=== PATIENT | female | born 1995 | race Caucasian/White ===

== ENCOUNTER 2016-11-12 07:00 | Emergency (ER) | payer BC ==
[2016-11-12 07:19] VITALS: BP 122/73
[2016-11-12 09:28] LABS: APPEARANCE,URINE CLEAR; BILIRUBIN,URINE NEGATIVE (NEGATIVE); GLUCOSE, URINE NEGATIVE (NEGATIVE); KETONES,URINE NEGATIVE (NEGATIVE); LEUKOCYTE ESTERASE,URINE NEGATIVE (NEGATIVE); NITRITE,URINE NEGATIVE (NEGATIVE); PROTEIN,URINE NEGATIVE (NEGATIVE); UROBILINOGEN,URINE NEGATIVE mg/dL (<2.0)
--- NOTE | 2016-11-12 10:53 | EKG REPORT ---
SEVERITY:- NORMAL ECG - SINUS RHYTHM : Confirmed by: Albert Peguero 12-Nov-2016 10:52:22
--- NOTE | 2016-11-12 10:53 | ER Document Report ---
ED General - General Chief Complaint: Anxiety Stated Complaint: CHEST PAIN TRAVEL OUTSIDE OF THE [place] IN LAST 30 DAYS: No - HPI Patient complains to provider of: chest pain numbness and tingling right arm Notes: Patient coming in for chest pain and tingling of the right arm patient states multiple episodes throughout the last few months states the episode tonight was to wear she's had. Patient denies any fevers chills nausea vomiting diarrhea recent travel. Patient's resting currently upon my evaluation. Patient currently is asymptomatic. - Related Data Allergies/Adverse Reactions: No Known Allergies Allergy (Unverified 11/12/16 07:19) Past Medical History - Social History Smoking Status: Current Some Day Smoker Chew tobacco use (# tins/day): No Frequency of alcohol use: Occasional Drug Abuse: None Family History: Reviewed & Not Pertinent Patient has suicidal ideation: No Patient has homicidal ideation: No Renal/ Medical History: Denies: Hx Peritoneal Dialysis Surgical Hx: Negative Review of Systems - Review of Systems Constitutional: No symptoms reported EENT: No symptoms reported Cardiovascular: Chest pain Respiratory: No symptoms reported Gastrointestinal: No symptoms reported Genitourinary: No symptoms reported Female Genitourinary: No symptoms reported Musculoskeletal: No symptoms reported Skin: No symptoms reported Hematologic/Lymphatic: No symptoms reported Neurological/Psychological: Tingling -: Yes All other systems reviewed and negative Physical Exam - Vital signs Vitals: Temp Pulse Resp BP Pulse Ox 98.0 F 99 18 122/73 97 11/12/16 07:15 11/12/16 07:15 11/12/16 07:15 11/12/16 07:15 11/12/16 07:15 Interpretation: Normal - General General appearance: Appears well, Alert - HEENT Head: Normocephalic, Atraumatic Eyes: Normal Pupils: PERRL - Respiratory Respiratory status: No respiratory distress Chest status: Nontender Breath sounds: Normal Chest palpation: Normal - Cardiovascular Rhythm: Regular Heart sounds: Normal auscultation Murmur: No - Abdominal Inspection: Normal Distension: No distension Bowel sounds: Normal Tenderness: Nontender Organomegaly: No organomegaly - Back Back: Normal, Nontender - Extremities General upper extremity: Normal inspection, Nontender, Normal color, Normal ROM , Normal temperature General lower extremity: Normal inspection, Nontender, Normal color, Normal ROM , Normal temperature, Normal weight bearing. No: Lore's sign - Neurological Neuro grossly intact: Yes Cognition: Normal Orientation: AAOx4 Jet Coma Scale Eye Opening: Spontaneous Rod Coma Scale Verbal: Oriented Rod Coma Scale Motor: Obeys Commands Rod Coma Scale Total: 15 Speech: Normal Motor strength normal: LUE, RUE, LLE, RLE Sensory: Normal - Psychological Associated symptoms: Normal affect, Normal mood - Skin Skin Temperature: Warm Skin Moisture: Dry Skin Color: Normal Course - Re-evaluation Re-evalutation: 11/12/16 14:53 EKG chest x-ray showed no acute pathology. Possibility patient may be having anxiety. Patient states an understanding of her results in degrees of follow- up. Patient discharged home. - Vital Signs Vital signs: Temp Pulse Resp BP Pulse Ox 98.5 F 97 20 122/73 100 11/12/16 11:15 11/12/16 11:15 11/12/16 11:15 11/12/16 11:15 11/12/16 11:00 Discharge - Discharge Clinical Impression: Chest pain of uncertain etiology Condition: Good Disposition: HOME, SELF-CARE Instructions: Anxiety ([facility]), Chest Wall Pain ([facility]), Chest Pain of Unclear Cause ([facility]), Palpitations (Irregular or Rapid Heartrate) ([facility]) Additional Instructions: Please follow-up with your primary care physician. Return to the ER if symptoms worsen. Prescriptions: Ibuprofen [Motrin 600 Mg Tablet] 600 mg PO TID #20 tablet Forms: Return to Work
== END 2016-11-12 11:05 | disposition home or self-care (01) ==
LOC: ER 07:00
DX: R07.9 Chest pain, unspecified (principal); F41.9 Anxiety disorder, unspecified; R20.2 Paresthesia of skin; F17.200 Nicotine dependence, unspecified, uncomplicated
CPT/HCPCS: 71020; 81001; 93005; 93010; 99285